=== PATIENT | female | born 1950 | race Asian ===

== ENCOUNTER → 2022-03-01 11:03 | Outpatient (CLI) | payer MEDICARE, OTHER, SELFPAY ==
--- NOTE | ~2022-03-01 | MM_ITS ---
EXAMINATION: MM screening claudio BI w boris HISTORY: Screening TECHNIQUE: Craniocaudal and mediolateral oblique 3-D tomosynthesis images were obtained and synthetic 2-D images were generated. CAD analysis was submitted and interpreted. COMPARISON: Comparison to multiple prior studies sequentially, with oldest reviewed study dated . BREAST PARENCHYMAL COMPOSITION: The breasts are heterogeneously dense, which may obscure small masses . FINDINGS: There is no evidence of suspicious mass, calcification, or architectural distortion to sugg est malignancy in either breast. There has been no suspicious interval change. IMPRESSION: 1. No mammographic evidence of malignancy. 2. Recommend routine screening mammography in one year. BI-RADS Category 1: Negative Reviewed, dictated and finalized at location A.
--- NOTE | ~2022-03-01 | DEXA_ITS ---
Bone Density Report Name: TAYE CARABALLO Age: 71 Sex: Female Ethnicity: Date of : 1950 Indication: postmenopausal; screening for osteoporosis; Referring Provider: Ankit, Yessica Study: Bone densitometry was performed. Exam Date: March 01, 2022 Accession number: [id number] Bone Density: Region BMD T-score Z-score Classification AP Spine (L1-L4) 0.928 -1.1 1.1 Osteopenia Femoral Neck (Left) 0.750 -0.9 1.0 Normal Total Hip (Left) 0.826 -1.0 0.6 Normal Femoral Neck (Right) 0.744 -0.9 0.9 Normal Total Hip (Right) 0.838 -0.9 0.7 Normal Total Hip Mean 0.832 -1.0 0.7 Normal World Health Organization criteria for BMD impression classify patients as: Normal (T-score at or above -1.0), Osteopenia (T-score between -1.0 and -2.5), or Osteoporosis (T-score at or below -2.5). 10-year Fracture Risk(1): Major Osteoporotic Fracture 5.1% Hip Fracture 0.6% Reported Risk Factors: [place] (), Neck BMD=0.744, BMI=25.8 (1) FRAX(R) Version 3.08. Fracture probability calculated for an untreated patient. Fracture probability may be lower if the patient has received treatment. Previous Exams: Region Exam Age BMD T-score BMD Change BMD Change Date g/cm2 vs Baseline vs Previous AP Spine(L1-L4) 03/01/2022 71 0.928 -1.1 -0.105* -0.023* 09/06/2011 60 0.951 -0.9 -0.081* -0.021 12/23/2008 58 0.972 -0.7 -0.060* -0.060* 01/15/2006 55 1.033 -0.1 Total Hip(Left) 03/01/2022 71 0.826 -1.0 -0.161* -0.078* 09/06/2011 60 0.904 -0.3 -0.084* 0.008 12/23/2008 58 0.896 -0.4 -0.091* -0.091* 01/15/2006 55 0.988 0.4 Total Hip(Right) 03/01/2022 71 0.838 -0.9 -0.125* -0.084* 09/06/2011 60 0.922 -0.2 -0.041* 0.050* 12/23/2008 58 0.872 -0.6 -0.091* -0.091* 01/15/2006 55 0.963 0.2 *Denotes significance at 95% confidence level, LSC for AP Spine = 0.022 g/cm2, LSC for Total Hip = 0.027 g/cm2 Clinical Information Provided by Patient: Patient maximum height was 60 Menopause Age: 49 No regular weight bearing exercise Does not regularly consume dairy products Onset of menses at age 12 Number of children 3 Impression: The patient has low bone mass, based on the Total Spine T-score. The patient has an estimated ten-year risk of hip fracture of 0.6% and an estimated
== END ==
PROVIDERS: PCP Internal Medicine; Visit Provider Internal Medicine
DX: Z12.31 Encounter for screening mammogram for malignant neoplasm of breast (principal); Z78.0 Asymptomatic menopausal state; M85.88 Other specified disorders of bone density and structure, other site
CPT/HCPCS: 77063; 77067; 77080

== ENCOUNTER → 2023-05-09 10:11 | Outpatient (CLI) | payer MEDICARE, OTHER, SELFPAY ==
--- NOTE | ~2023-05-09 | MM_ITS ---
EXAMINATION: MM screening claudio BI w boris HISTORY: Screening mammogram, family history of breast cancer in her daughter. TECHNIQUE: Craniocaudal and mediolateral oblique 3-D tomosynthesis images were obtained and synthetic 2-D images were generated. CAD analysis was submitted and interpreted. COMPARISON: 03/01/2022, 02/19/2019 BREAST PARENCHYMAL COMPOSITION:Not Dense. There are scattered areas of fibroglandular density. FINDINGS: No suspicious mass, calcification, or architectural distortion are identified in either patrice ast to suggest malignancy. There has been no suspicious interval change. IMPRESSION: No mammographic evidence of malignancy. Recommend routine screening mammography in one year. BI-RADS Category 1: Negative Reviewed, dictated and finalized at location . MASTER/MISTRESS
== END ==
PROVIDERS: PCP Internal Medicine; Visit Provider Internal Medicine
DX: Z12.31 Encounter for screening mammogram for malignant neoplasm of breast (principal)
CPT/HCPCS: 77063; 77067

== ENCOUNTER 2024-10-28 14:01 | Outpatient (CLI) | payer MEDICARE, OTHER, SELFPAY ==
--- NOTE | ~2024-10-28 | MM_ITS ---
EXAMINATION: MM screening claudio BI w boris HISTORY: Screening mammogram, family history of breast cancer in her daughter. TECHNIQUE: Craniocaudal and mediolateral oblique 3-D tomosynthesis images were obtained and synthetic 2-D images were generated. CAD analysis was submitted and interpreted. COMPARISON: 05/09/2023, 03/01/2022 BREAST PARENCHYMAL COMPOSITION:Not Dense. There are scattered areas of fibroglandular density. FINDINGS: No suspicious mass, calcification, or architectural distortion are identified in either patrice ast to suggest malignancy. There has been no suspicious interval change. IMPRESSION: No mammographic evidence of malignancy. Recommend routine screening mammography in one year. BI-RADS Category 1: Negative Reviewed, dictated and finalized at location .
--- NOTE | ~2024-10-28 | DEXA_ITS ---
Bone Density Report Name: TAYE CARABALLO Age: 74 Sex: Female Ethnicity: Date of : 1950 Indication: osteopenia; Referring Provider: AnkitYessica Study: Bone densitometry was performed. Exam Date: October 28, 2024 Accession number: [id number] Bone Density: Region BMD T-score Z-score Classification AP Spine(L1-L4) 0.897 -1.4 1.0 Osteopenia Femoral Neck (Left) 0.748 -0.9 1.1 Normal Total Hip (Left) 0.843 -0.8 0.9 Normal Femoral Neck (Right) 0.763 -0.8 1.3 Normal Total Hip (Right) 0.870 -0.6 1.1 Normal Total Hip Mean 0.856 -0.7 1.0 Normal World Health Organization criteria for BMD impression classify patients as: Normal (T-score at or above -1.0), Osteopenia (T-score between -1.0 and -2.5), or Osteoporosis (T-score at or below -2.5). 10-year Fracture Risk(1): Major Osteoporotic Fracture 5.2% Hip Fracture 0.7% Reported Risk Factors: [place] (), Neck BMD=0.748, BMI=27.1 (1) FRAX(R) Version 3.08. Fracture probability calculated for an untreated patient. Fracture probability may be lower if the patient has received treatment. Previous Exams: -- Region Exam Age BMD T-score BMD Change BMD Change Date g/cm2 vs Baseline vs Previous -- AP Spine (L1-L4) 10/28/2024 74 0.897 -1.4 -13.1%* -3.3%* 03/01/2022 71 0.928 -1.1 -10.1%* -2.4%* 09/06/2011 60 0.951 -0.9 -7.9%* -2.2% 12/23/2008 58 0.972 -0.7 -5.9%* -5.9%* 01/15/2006 55 1.033 -0.1 Total Hip(Left) 10/28/2024 74 0.843 -0.8 -14.7%* 2.0% 03/01/2022 71 0.826 -1.0 -16.4%* -8.6%* 09/06/2011 60 0.904 -0.3 -8.5%* 0.8% 12/23/2008 58 0.896 -0.4 -9.2%* -9.2%* 01/15/2006 55 0.988 0.4 Total Hip(Right) 10/28/2024 74 0.870 -0.6 -9.6%* 3.8%* 03/01/2022 71 0.838 -0.9 -12.9%* -9.1%* 09/06/2011 60 0.922 -0.2 -4.2%* 5.8%* 12/23/2008 58 0.872 -0.6 -9.4%* -9.4%* 01/15/2006 55 0.963 0.2 -- *Denotes significance at 95% confidence level, LSC for AP Spine = 0.022 g/cm2, LSC for Total Hip = 0.027 g/cm2 Clinical Information Provided by Patient: Has used the following medications: Vitamin D Menopause Age: 49 Does not regularly consume dairy products Onset of menses at age 12 Number of children 3 Impression: The patient has low bone mass, based on the Total Spine T-score. The patient has an estimated ten-year risk of hip fracture of 0.7% and an estimated ten-year risk of major fracture of 5.2%, based on the WHO FRAX algorithm. The BMD for the AP Spine (L1-L4) decreased, changing by -3.3% since the last DXA exam. Discussion: BONE DENSITY IS LOW AT ONE OR MORE SKELETAL SITES. This patient's lowest T-score is low at one or more skeletal sites. It meets the World Health Organization's (WHO) criteria for ?low bone mass? (T-score between -1.0 and -2.5). The patient's 10-year risk of fracture as calculated by FRAX is less than the threshold where pharmacological therapy is recommended by the National Osteoporosis Foundation (NOF). However, all treatment decisions require clinical judgment and consideration of individual patient factors, including patient preferences, comorbidities, previous drug use, risk factors not captured in the FRAX model (e.g., frailty, falls, vitamin D deficiency, increased bone turnover, interval significant decline in bone density) and possible under or overestimation of fracture risk by FRAX. The patient should follow a healthful lifestyle (good nutrition with adequate calcium and vitamin D, and appropriate weight-bearing exercise). Follow-Up: Consider repeating this study in 2 years to reassess this patient's status, or sooner if there is some new clinical indication. Reported by: MICHEAL on 10/28/2024 2:32:00 PM. Reviewed, dictated and finalized at location A.
== END 2024-10-28 14:02 | disposition home or self-care (01) ==
PROVIDERS: PCP Internal Medicine; Visit Provider Internal Medicine
DX: Z12.31 Encounter for screening mammogram for malignant neoplasm of breast (principal); M85.89 Other specified disorders of bone density and structure, multiple sites; Z78.0 Asymptomatic menopausal state; Z80.3 Family history of malignant neoplasm of breast
CPT/HCPCS: 77063; 77067; 77080